=== PATIENT | male | born 1945 | race Caucasian/White ===

== ENCOUNTER 2019-05-03 19:05 | Emergency (ER) | payer OTHER, BC | END 2019-05-03 20:08 | disposition home or self-care (01) | LOC: FER 19:05 ==

== ENCOUNTER 2019-05-10 15:33 | Emergency (ER) | payer OTHER, BC ==
[2019-05-10 15:46] VITALS: BP 136/73; PULSE 72; TEMP 98.6; BMI 35.9
--- NOTE | 2019-05-10 15:52 | PDOC ---
Suture Removal/Wound Check HPI - History of Present Illness Chief Complaint: Suture/Staple Removal(Here) Stated Complaint: LEFT THUMB SUTURE REMOVAL Time Seen by Provider: 05/10/19 15:49 History Source: Yes: Patient Exam Limitations: Yes: No Limitations Treated at: [facility] - Onset of Previous Treatment Comment:: 05/10/19 15:49 74 y/o male here for suture removal from left thumb. Cut it with a knife. On Coumadin. Occurred last week. No pain or redness. No fever or chills. Past History - Past Medical History Allergies/Adverse Reactions: Allergies Allergy/AdvReac Type Severity Reaction Status Date / Time clopidogrel bisulfate Allergy Verified 05/10/19 15:35 [From Plavix] Penicillins Allergy Verified 05/10/19 15:35 Home Medications: Ambulatory Orders Simvastatin [Zocor] 40 mg PO HS 04/18/13 Tamsulosin HCl [Flomax] 0.4 mg PO HS 04/18/13 Amlodipine Besylate 2.5 mg PO HS 05/03/19 Aspirin [Aspirin EC] 81 mg PO DAILY 05/03/19 Cholecalciferol (Vitamin D3) [Vitamin D3 -] 1,000 unit PO DAILY 05/03/19 Losartan/Hydrochlorothiazide [Losartan-Hctz 50-12.5 mg Tab] 1 each PO DAILY Metoprolol Succinate [Toprol Xl] 25 mg PO HS 05/03/19 Potassium Chloride [K-Dur -] 20 meq PO DAILY 05/03/19 Sulfamethoxazole/Trimethoprim [Bactrim DS -] 1 tab PO BID #10 tablet 05/03/19 Warfarin Na [Coumadin] 2.5 mg PO TUFR 05/03/19 Warfarin Na [Coumadin] 5 mg PO SUMOWETHSA 05/03/19 Cardiac Disorders: Yes (STENT) COPD: No Disorders: Yes (BPH) HTN: Yes Hypercholesterolemia: Yes - Surgical History Cardiac Surgery: Yes (STENT) Cholecystectomy: Yes - Immunization History Td Vaccination: Yes Immunization Up to Date: (UNSURE) - Suicide/Smoking/Psychosocial Hx Smoking Status: No Smoking History: Never smoked Have you smoked in the past 12 months: No Number of Cigarettes Smoked Daily: 0 Information on smoking cessation initiated: No Hx Alcohol Use: (social) Suture Removal/Wound Check PE - Physical Exam Laceration/Wound Check Symptoms: reports: None Location of Laceration/Wound: left: Finger (left thumb with 2 sutures no infection, redness or drainage noted) *Review of Systems - Review of Systems Able to Perform ROS?: Yes Constitutional: No: Chills, Fever Respiratory: No: Shortness of Breath Integumentary: No: Erythema All Other Systems: Reviewed and Negative *Physical Exam - Vital Signs Last Vital Signs Temp Pulse Resp BP Pulse Ox 98.6 F 72 18 136/73 96 05/10/19 15:33 05/10/19 15:33 05/10/19 15:33 05/10/19 15:33 05/10/19 15:33 Medical Decision Making - Medical Decision Making 05/10/19 15:51 2 sutures removed, no bleeding or infection noted Tolerated procedure well, no dehiscence *DC/Admit/Observation/Transfer Diagnosis at time of Disposition: Encounter for removal of sutures - Discharge Dispostion Disposition: HOME Condition at time of disposition: Stable Decision to Admit order: No - Referrals - Patient Instructions Printed Discharge Instructions: DI for Suture Removal Additional Instructions: Ice, rest, Tylenol If worsen return to ER - Post Discharge Activity
== END 2019-05-10 15:55 | disposition home or self-care (01) ==
LOC: FER 15:33
DX: Z48.02 Encounter for removal of sutures (principal)
CPT/HCPCS: 99282-25